=== PATIENT | female | born 1965 | race Caucasian/White ===

== ENCOUNTER 2016-12-12 09:29 | Emergency (ER) | payer OTHER ==
[~2016-12-12] VITALS: Ht 157.5 cm; Wt 74.8 kg
--- NOTE | ~2016-12-12 | EKG ---
[address] [place] [address] ELECTROCARDIOGRAM REPORT Name: CHEYANNE ELMORE [id number] Admission: 12/12/16 Attend Phys: Discharge: 12/12/16 Date of : 65 Report #: [id number] THIS REPORT FOR: //name// [facility] ED Test Date: 2016-12-12 Test Time: 09:34:46 Pat Name: CHEYANNE ELMORE Department: Room: Gender: F Nursing Services Manager: christine : 1965 Requested By: Marline Johnson Order Number: [id number] MD: Alex Romano Measurements Intervals [place] Rate: 72 P: 41 MT: 148 QRS: 75 QRSD: 109 T: 32 QT: 388 QTc: 425 Interpretive Statements Sinus rhythm No significant abnormality No previous ECG available for comparison Electronically Signed On 12-13-2016 12:37:46 CDT by Alex Romano [email or web address] <ELECTRONICALLY SIGNED> By: Alex Romano MD, [facility] 12/13/16 1237 0934 3 Alex Romano MD, FACC /EPI
[2016-12-12] MEDS ORDERED: NOHOMEMEDICATIONS (09:40)
[2016-12-12 09:52] LABS: ABSOLUTE NEUTROPHILS 3.8 thou/uL (1.4-8.2); BASOPHILS 0.4 % (0.0-2.0); EOSINOPHILS 1.7 % (0.0-3.0); HEMATOCRIT 36.7 % (37.0-47.0); HEMOGLOBIN 11.9 gm/dL (12.0-15.0); LYMPHOCYTES 23.9 % (24.0-44.0); MCH 21.8 pg (26.0-34.0); MCHC 32.4 g/dL (28.0-37.0); MCV 67.4 fL (80.0-100.0); MONOCYTES 10.1 % (1.0-8.0); PLATELET COUNT 210 thou/uL (150-400); POLYS 63.9 % (36.0-66.0); RBC 5.45 mil/uL (4.20-5.00); RDW 14.8 % (10.5-14.5); WBC 5.9 thou/uL (4.0-11.0)
[2016-12-12 09:55] LABS: MANUAL DIFF NO
[2016-12-12 09:58] LABS: ANION GAP 8 mmol/L (7-16); BUN 13 mg/dL (7-18); CALCIUM 9.9 mg/dL (8.5-10.1); CHLORIDE 104 mmol/L (98-107); CO2 28 mmol/L (21-32); CREATININE 0.7 mg/dL (0.6-1.0); GLUCOSE 91 mg/dL (74-106); POTASSIUM 4.4 mmol/L (3.5-5.1); SODIUM 140 mmol/L (136-145)
[2016-12-12 10:07] LABS: ALBUMIN 4.3 g/dL (3.4-5.0); ALKALINE PHOSPHATASE 81 U/L (46-116); SGOT 21 U/L (15-37); SGPT 25 U/L (30-65); TOTAL BILIRUBIN 0.4 mg/dL (<0.1-1.0); TOTAL PROTEIN 9.1 g/dL (6.4-8.2); TROPONIN-I < 0.04 ng/mL (<0.04-0.07)
[2016-12-12 10:39] LABS: ANISOCYTOSIS 1+; OVALOCYTES 1+
[2016-12-12] MEDS ORDERED: MOBIC7.5 MG PO (12:20)
[2016-12-12 13:32] VITALS: BP 128/84
== END 2016-12-12 13:33 | disposition home or self-care (01) ==
LOC: ER 09:29
PROVIDERS: Physician Assistant
DX: R07.89 Other chest pain (principal); Z90.710 Acquired absence of both cervix and uterus